=== PATIENT | male | born 1990 | race American Indian/Alaskan Native ===

== ENCOUNTER 2018-02-23 15:15 | Emergency (ER) | payer OTHER ==
[2018-02-23 15:24] VITALS: BP 124/66; PULSE 80; TEMP 99.1; O2SAT 100
--- NOTE | 2018-02-23 15:34 | C.PDOC ---
History Of Present Illness 27 year old male presents to the ER with exacerbation of left knee pain that began today. Patient has had a Hx of similar intermittently and randomly for the past several years, not associated with any activity or position. Patient states it happens "sometimes when just getting up from sitting", today the onset occurred after basketball, he began walking and then the pain began. Patient notes the pain is worse when he straighten his leg. No direct trauma or mid stride. Time Seen by Provider: 02/23/18 15:33 Chief Complaint (Nursing): Lower Extremity Problem/Injury History Per: Patient History/Exam Limitations: no limitations Onset/Duration Of Symptoms: Hrs Current Symptoms Are (Timing): Still Present Recent travel outside of the [place]: No Past Medical History Reviewed: Historical Data, Nursing Documentation, Vital Signs Vital Signs: Last Vital Signs Temp 99.1 F 02/23/18 15:22 Pulse 80 02/23/18 15:22 Resp 17 02/23/18 16:01 BP 124/66 02/23/18 15:22 Pulse Ox 100 02/23/18 15:37 Surgical History: No Surg Hx Family History: States: Unknown Family Hx - Social History Hx Tobacco Use: No Hx Alcohol Use: No Hx Substance Use: No - Immunization History Hx Tetanus Toxoid Vaccination: No Hx Influenza Vaccination: No Hx Pneumococcal Vaccination: No Review Of Systems Except As Marked, All Systems Reviewed And Found Negative. Musculoskeletal: Positive for: Leg Pain Neurological: Negative for: Weakness, Numbness Physical Exam - Physical Exam Appears: Non-toxic, No Acute Distress Skin: Normal Color, Warm, Dry Head: Atraumatic, Normacephalic Eye(s): bilateral: Normal Inspection Extremity: Normal ROM (x4), No Tenderness, Capillary Refill (<2 second), No Deformity, No Swelling Pulses: Left Dorsalis Pedis: Normal, Right Dorsalis Pedis: Normal Neurological/Psych: Oriented x3, Normal Speech, Normal Motor, Normal Sensation Gait: Steady ED Course And Treatment O2 Sat by Pulse Oximetry: 100 (Room air) Pulse Ox Interpretation: Normal Medical Decision Making Medical Decision Making: Patient had a right knee x-ray on 2015, he was advise need for ortho evaluation , he is refusing pain medication at this time and is requesting a knee immobilizer instead. Disposition Counseled Patient/Family Regarding: Diagnosis, Need For Followup, Rx Given - Disposition Referrals: Radiopharmacist Service [Outside] [facility] [Outside] Disposition: HOME/ ROUTINE Disposition Time: 15:35 Condition: GOOD Prescriptions: Ibuprofen [Motrin] 600 mg PO Q6 #30 tab Instructions: Knee Pain (DC) Forms: [facility] (Mauritian) - Clinical Impression Clinical Impression: Chronic knee pain - Scribe Statement The provider has reviewed the documentation as recorded by the Scribe Stephane Iyer All medical record entries made by the Scribe were at my direction and personally dictated by me. I have reviewed the chart and agree that the record accurately reflects my personal performance of the history, physical exam, medical decision making, and the department course for this patient. I have also personally directed, reviewed, and agree with the discharge instructions and disposition.
[2018-02-23 16:04] VITALS: RESP 17
== END 2018-02-23 16:00 | disposition home or self-care (01) ==
LOC: C.ER 15:15
DX: M25.562 Pain in left knee (principal); G89.29 Other chronic pain

== ENCOUNTER 2018-05-27 15:30 | Emergency (ER) | payer OTHER ==
[2018-05-27 15:48] VITALS: O2SAT 100
[2018-05-27] MEDS ORDERED: Naproxen 550 mg Tab PO STA (16:25)
[2018-05-27] MEDS ORDERED: Naproxen 550 mg Tab PO ONE (16:30)
[2018-05-27 16:48] LABS: URINE BILIRUBIN NEGATIVE (NEGATIVE); URINE BLOOD NEGATIVE (NEGATIVE); URINE CLARITY Clear (Clear); URINE COLOR Yellow (YELLOW); URINE GLUCOSE (UA) NORMAL (Normal); URINE LEUKOCYTE ESTERASE NEG Leu/uL (Negative); URINE PROTEIN NEGATIVE (NEGATIVE)
[2018-05-27 17:04] LABS: BARBITURATES, UR NEGATIVE (NEGATIVE); BENZODIAZEPINES, UR NEGATIVE (NEGATIVE); OPIATES, UR NEGATIVE (NEGATIVE); PHENCYCLIDINE, UR NEGATIVE (NEGATIVE)
--- NOTE | 2018-05-27 17:12 | RAD ---
Date of service: 05/27/2018 PROCEDURE: Radiographs of the Lumbar Spine. HISTORY: pain COMPARISON: No prior. FINDINGS: BONES: Normal alignment. No listhesis. No fracture. Note made of spina bifida occulta S1 segment DISC SPACES: Unremarkable. OTHER FINDINGS: None. IMPRESSION: No acute fractures. Spina bifida occulta S1 segment
--- NOTE | 2018-05-27 17:31 | C.PDOC ---
History Of Present Illness 27 year old male presents to the ER with a complaint of lower back pain for the last 2 weeks that worsens with movement. HE did not take any pain medication today. Patient was seen by PMD when the pain started and was given a muscle relaxer but the pain persists. Denies dysuria, hematuria, abdominal pain, trauma, testicular pain, weakness, numbness, or bladder/bowel incontinence. Time Seen by Provider: 05/27/18 15:57 Chief Complaint (Nursing): Back Pain History Per: Patient History/Exam Limitations: no limitations Onset/Duration Of Symptoms: Days Current Symptoms Are (Timing): Still Present Quality Of Discomfort: Unable To Describe Previous Symptoms: None Associated Symptoms: None Exacerbating Factor(s): Movement Recent travel outside of the [place]: No Past Medical History Reviewed: Historical Data, Nursing Documentation, Vital Signs Vital Signs: Last Vital Signs Temp 97.8 F 05/27/18 15:46 Pulse 70 05/27/18 15:46 Resp 19 05/27/18 15:46 BP 154/65 H 05/27/18 15:46 Pulse Ox 100 05/27/18 15:46 Family History: States: Unknown Family Hx - Social History Hx Tobacco Use: No Hx Alcohol Use: No Hx Substance Use: No - Immunization History Hx Tetanus Toxoid Vaccination: No Hx Influenza Vaccination: No Hx Pneumococcal Vaccination: No Review Of Systems Except As Marked, All Systems Reviewed And Found Negative. Genitourinary: Negative for: Dysuria, Incontinence, Hematuria Musculoskeletal: Positive for: Back Pain Neurological: Negative for: Weakness, Numbness Physical Exam - Physical Exam Appears: Non-toxic, No Acute Distress Skin: Normal Color, Warm, Dry Head: Atraumatic, Normacephalic Eye(s): bilateral: Normal Inspection, EOMI Nose: Normal Oral Mucosa: Moist Neck: Normal ROM, Supple Chest: Symmetrical Cardiovascular: Rhythm Regular Respiratory: No Accessory Muscle Use Gastrointestinal/Abdominal: Soft, No Tenderness Back: No Vertebral Tenderness, Paraspinal Tenderness (b/l paralumbar tenderness) Extremity: Normal ROM (x4) Neurological/Psych: Oriented x3, Normal Speech, Normal Motor, Normal Sensation ((-) saddle anesthsia) Gait: Steady ED Course And Treatment O2 Sat by Pulse Oximetry: 100 (Room air) Pulse Ox Interpretation: Normal - Other Rad LS spine x-ray X-Ray: Viewed By Me, Read By Radiologist Interpretation: PROCEDURE: Radiographs of the Lumbar Spine. HISTORY: pain. COMPARISON: No prior. FINDINGS: BONES: Normal alignment. No listhesis. No fracture. Note made of spina bifida occulta S1 segment. DISC SPACES: Unremarkable. OTHER FINDINGS: None. IMPRESSION: No acute fractures. Spina bifida occulta S1 segment Progress Note: LS spine x-ray and urinalysis ordered, results were negative. Naproxen administered. Patient reports improvement of pain, he is resting comfortably in no acute distress and able to ambulate with a steady gait. No change in sensation. No changes in urination. Pt discharged home with Rx and instructions to follow up with PMD in 1-2 days. Disposition - Disposition Disposition: HOME/ ROUTINE Disposition Time: 17:30 Condition: STABLE Additional Instructions: Follow up with your primary medical doctor or clinic in 2-5 days for further evaluation. Take medications as prescribed. Return to the emergency department at any time if symptoms persist or worsen. Prescriptions: Naproxen [Naprosyn] 1 tab PO BID PRN #20 tab PRN Reason: Pain Instructions: Low Back Pain (DC) Forms: [employer] (Pashto) - Clinical Impression Clinical Impression: Low back pain - PA / [employer] / Resident Statement MD/DO has reviewed & agrees with the documentation as recorded. - Scribe Statement The provider has reviewed the documentation as recorded by the Scribsilvana Iyer All medical record entries made by the Rupert were at my direction and personally dictated by me. I have reviewed the chart and agree that the record accurately reflects my personal performance of the history, physical exam, medical decision making, and the department course for this patient. I have also personally directed, reviewed, and agree with the discharge instructions and disposition.
[2018-05-27 17:49] VITALS: BP 119/68; PULSE 67; RESP 18; TEMP 98
== END 2018-05-27 17:49 | disposition home or self-care (01) ==
LOC: C.ER 15:30
DX: M54.5 Low back pain (principal)
CPT/HCPCS: 72100; 81001; 99284; G0480